=== PATIENT | female | born 1985 | race African-American/Black ===

== ENCOUNTER 2019-03-11 18:08 | Emergency (ER) | payer MEDICAID, OTHER ==
[~2019-03-11] VITALS: Ht 165.1 cm; Wt 70.3 kg
--- NOTE | 2019-03-11 18:59 | NUR ---
SHIFT REPORT GIVEN TO DON Arce RN.
--- NOTE | 2019-03-11 19:18 | NUR ---
PATIENT REFUSED TO TAKE AMOXICILLIN RX. REUESTING TO TAKE Z PACK INSTEAD. DR LAINEZ MADE AWARE.
--- NOTE | 2019-03-11 19:20 | NUR ---
Patient discharged to home in stable conditon. Written and verbal after care instructions given. Patient verbalizes understanding of instructions.
[2019-03-11 19:21] VITALS: BP 141/88
== END 2019-03-11 19:22 | disposition home or self-care (01) ==
LOC: ER 18:11
DX: J32.9 Chronic sinusitis, unspecified (principal); Z88.8 Allergy status to other drugs, medicaments and biological substances; Z91.013 Allergy to seafood
CPT/HCPCS: A4663